=== PATIENT | female | born 1970 | race Caucasian/White ===

== ENCOUNTER 2017-08-25 19:15 | Emergency (ER) | payer OTHER ==
[~2017-08-25] VITALS: Ht 170.2 cm; Wt 103.6 kg
[2017-08-25 19:25] VITALS: TEMP 99
[2017-08-25 20:02] LABS: BASO # 0.1 (0.0-0.2); BASO % 0.7 % (0.0-2.0); EOS # 0.4 (0.0-0.7); EOS % 2.8 % (0-4.0); GRAN # 9.7 (1.4-6.5); GRAN % 74.7 % (42.2-75.2); HEMATOCRIT 35.5 % (37.0-47.0); HEMOGLOBIN 12.2 g/dl (12.5-16.0); LYMPH # 1.9 (1.2-3.4); MEAN CELL VOLUME 96 fl (80.0-100.0); MEAN CORPUSCULAR HEMOGLOBIN 33 pg (27.0-31.0); MEAN CORPUSCULAR HGB CONC 34 g/dl (33.0-37.0); MEAN PLATELET VOLUME 9.5 fl (7.4-10.4); MONO # 0.8 (0.1-0.6); MONO % 6.3 % (1.7-9.3); PLATELET COUNT 453 K/mm3 (130-400); RED BLOOD COUNT 3.71 M/mm3 (4.10-5.30); REDCELL DISTRIBUTION WIDTH-CV 14.3 % (11.5-14.5)
[2017-08-25] MEDS ORDERED: PRISTIQ 50 MG T50 MG PO (20:07)
[2017-08-25] MEDS ORDERED: PEN-VEE K500 MG PO (20:08)
[2017-08-25] MEDS ORDERED: NEXIUM 20MG20 MG PO (20:08)
[2017-08-25] MEDS ORDERED: MULTI VITAMINS1 TAB PO (20:09)
[2017-08-25 20:12] LABS: C-REACTIVE PROTEIN 1.6 mg/dL (0.0-0.9); CALCIUM 9.6 mg/dL (8.4-10.2); CREATININE, serum 0.62 mg/dL (0.52-1.25); POTASSIUM 3.9 mmol/L (3.4-5.0)
[2017-08-25] MEDS ORDERED: DOXYCYCLINE 10100 MG PO (20:42)
[2017-08-25 22:02] VITALS: BP 110/80; PULSE 80
== END 2017-08-25 22:03 | disposition home or self-care (01) ==
LOC: COL.ER 19:15
PROVIDERS: Emergency Medicine
DX: L03.116 Cellulitis of left lower limb (principal)
CPT/HCPCS: J7030; J7050